=== PATIENT | male | born 1970 | race Native Hawaiian/Other Pacific Islander ===

== ENCOUNTER 2016-08-12 07:12 | Emergency (ER) | payer BC ==
[~2016-08-12] VITALS: Ht 185.4 cm; Wt 104.3 kg
[2016-08-12 07:26] LABS: PLATELET COUNT 315 K/uL (142-355)
[2016-08-12 07:33] LABS: POTASSIUM 4.1 mmol/L (3.6-5.2); SODIUM 141 mmol/L (136-145)
[2016-08-12 08:45] VITALS: BP 111/61
== END 2016-08-12 08:50 | disposition short-term general hospital (02) ==
LOC: ED 07:12
DX: K92.2 Gastrointestinal hemorrhage, unspecified (principal); K92.0 Hematemesis; R19.5 Other fecal abnormalities
CPT/HCPCS: 36415; 80053; 85027; 86318; 93005; 96360; 96361; 96374; 96376; 99284; J2405; J3490

== ENCOUNTER 2016-08-12 08:56 | Outpatient (CLI) | payer BC | END 2016-08-12 09:44 | disposition short-term general hospital (02) | LOC: AMB 08:56 | DX: K92.2 Gastrointestinal hemorrhage, unspecified (principal); K92.0 Hematemesis; R19.5 Other fecal abnormalities | CPT/HCPCS: A0425; A0427 ==

== ENCOUNTER 2016-08-16 04:29 | Outpatient (CLI) | payer BC | END 2016-08-16 04:55 | disposition short-term general hospital (02) | LOC: AMB 04:29 | DX: K92.0 Hematemesis (principal) | CPT/HCPCS: A0425; A0427 ==

== ENCOUNTER 2020-04-10 15:09 | Outpatient (CLI) | payer BC | END 2020-04-10 22:36 | disposition home or self-care (01) | LOC: MAMMO 15:09 | DX: N64.59 Other signs and symptoms in breast (principal); N63.10 Unspecified lump in the right breast, unspecified quadrant ==